=== PATIENT | female | born 1930 | race Caucasian/White ===

== ENCOUNTER → 2016-12-11 | Outpatient (REF) ==
[~2016-12-11] MED LIST: AMOXICILLIN 50500 MG PO; ANTIVERT 25MG25 MG PO; ARICEPT10 MG PO; ASPIRIN 32325 MG/TA1 PO; ASPIRIN 81M81 MG/TA2 PO; ATIVAN0.5 MG PO; BETIMOL 0.5% OPH5 ML OU; CALCIUM 1200 601 SGL PO; CIPRO 500MG TA500 MG PO; CLARITIN 1010 MG/TAB PO; CLARITIN10 MG PO; CLEOCIN HC150 MG/CAP PO; COLACE LIQUI10 MG/ML PO; COQ(10)1010 MG PO; COQ10150 MG PO; CORDARONE200 MG/TAB PO; DEBROX OT; DULCOLAX S10 MG/SUPP RC; EXELON PAT4.6 MG/24 TD; FLEXERIL5 MG PO; FOLIC ACID0.8 MG PO; GLUCOSAMINE & C1 TER PO; LEVAQUIN 5500 MG/TA1 PO; LIPITOR40 MG PO; LOPRESSOR 225 MG/TAB PO; LOW DOSE ASPIRI81 MG PO; METRONIDAZOLE500 MG PO; MILK OF MA400 MG/52 PO; MS CONTIN 115 MG/TAB PO; MUCINEX1200 MG PO; MULTI VITAMINS1 TAB PO; MULTIVITAMIN FO1 CAP PO; NAMENDA 10MG TA10 MG PO; NAMENDA XR 28MG PO; NORCO 325 MG-51 TAB PO; NORCO 325 MG-7.1 TAB PO; OMEGA-3 1000 MG1 SGL PO; OSTEO-BI-FLEX 21 TAB PO; PEPCID 20MG TAB20 MG PO; PERCOCET 325 MG1 TA2 PO; PRILOSEC OTC20 MG PO; ROXICODONE 55 MG/TAB PO; SENOKOT S 50 MG1 TAB PO; STOOL SOFTENER100 M2 PO; TIROSINT125 MC1 PO; TOPROL XL 25MG25 MG PO; TRAVATAN 2.5 M2.5 M1 OU; TYLENOL 325MG325 MG PO; TYLENOL 500MG500 MG PO; ULTRAM 50MG TAB50 MG PO; VITAMIN B COMPL1 TA1 SL; VITAMIN C BUFF500 MG PO; VITAMIN D1000 IU PO; VITAMIN D3400 IU PO; VITAMINC1000TA; XALATAN EYE DROPS OD; XALATAN EYE DROPS OU; XARELTO20 MG PO; [UNRECOGNIZED DRUG - OTHER] OP; [UNRECOGNIZED DRUG - SUPPLY] IO
[2016-12-11 12:18] LABS: THYROID STIMULATING HORMONE 0.22 uIU/mL (0.465-4.680)
== END ==
LOC: ZLAB.WCH 09:06
PROVIDERS: Internal Medicine
DX: Z01.89 Encounter for other specified special examinations (principal)

== ENCOUNTER → 2017-03-07 | Outpatient (REF) | LOC: ZLAB.WCH 09:16 | DX: Z01.89 Encounter for other specified special examinations (principal) ==

== ENCOUNTER → 2017-04-28 | Outpatient (REF) | LOC: ZLAB.WCH 09:00 | DX: Z01.89 Encounter for other specified special examinations (principal) ==

== ENCOUNTER → 2017-09-03 | Outpatient (REF) | LOC: ZLAB.WCH 08:41 | DX: Z01.89 Encounter for other specified special examinations (principal) ==

== ENCOUNTER → 2017-11-26 | Outpatient (REF) ==
[2017-11-26 09:14] LABS: THYROID STIMULATING HORMONE 0.248 uIU/mL (0.465-4.680)
== END ==
LOC: ZLAB.WCH 08:32
PROVIDERS: Internal Medicine
DX: Z01.89 Encounter for other specified special examinations (principal)

== ENCOUNTER → 2017-12-03 | Outpatient (REF) | LOC: ZLAB.WCH 08:35 | DX: Z01.89 Encounter for other specified special examinations (principal) ==

== ENCOUNTER → 2018-02-10 | Outpatient (REF) | LOC: ZLAB.WCH 14:53 | DX: Z01.89 Encounter for other specified special examinations (principal) ==

== ENCOUNTER → 2018-02-19 | Outpatient (REF) | LOC: ZLAB.WCH 15:58 | DX: Z01.89 Encounter for other specified special examinations (principal) ==

== ENCOUNTER → 2018-02-28 | Outpatient (REF) | LOC: ZLAB.WCH 12:53 | DX: Z01.89 Encounter for other specified special examinations (principal) ==

== ENCOUNTER → 2018-03-02 | Outpatient (REF) | LOC: ZLAB.WCH 16:10 | DX: Z01.89 Encounter for other specified special examinations (principal) ==

== ENCOUNTER → 2018-04-16 | Outpatient (REF) | LOC: ZLAB.WCH 15:55 | DX: Z01.89 Encounter for other specified special examinations (principal) ==

== ENCOUNTER → 2018-08-15 | Outpatient (REF) ==
[2018-08-15 12:37] LABS: THYROID STIMULATING HORMONE 1.12 uIU/mL (0.465-4.680)
== END ==
LOC: ZLAB.WCH 11:37
PROVIDERS: Internal Medicine
DX: Z01.89 Encounter for other specified special examinations (principal)

== ENCOUNTER → 2018-09-02 | Outpatient (REF) | LOC: ZLAB.WCH 16:27 | DX: Z01.89 Encounter for other specified special examinations (principal) ==